=== PATIENT | female | born 1940 | race American Indian/Alaskan Native ===

== ENCOUNTER 2017-10-25 19:15 | Emergency (ER) | payer MEDICARE ==
--- NOTE | 2017-10-25 20:08 | C.PDOC ---
History Of Present Illness The patient is brought to the ED by family for evaluation of a possible fall which occurred prior to arrival. Patient's son states he heard a noise coming from the bathroom and found that patient had fallen inside the bath tub. Patient denies loss of consciousness. Patient's PMHx includes dementia and she is unable to provide any additional history. - HPI Time Seen by Provider: 10/25/17 20:03 Chief Complaint (Nursing): Trauma History Per: Patient, Family History/Exam Limitations: other (dementia ) Onset/Duration Of Symptoms: Hrs Injury Occurred (Timing): Just Before Arrival Location Of Injury: Left: Hip (abrasion) Severity: Mild Pain Scale Rating Of: 2 Recent travel outside of the [place]: No Additional History Per: Patient, Family Past Medical History Reviewed: Historical Data, Nursing Documentation, Vital Signs Vital Signs: Last Vital Signs Temp 97 F L 10/25/17 19:40 Pulse 82 10/25/17 22:53 Resp 18 10/25/17 22:53 BP 123/86 10/25/17 22:53 Pulse Ox 98 10/25/17 22:53 - Medical History PMH: Alzheimer's Disease, Dementia, HTN ("MANY YEARS AGO") Surgical History: No Surg Hx Family History: States: Unknown Family Hx - Social History Hx Tobacco Use: No Hx Alcohol Use: No Hx Substance Use: No - Immunization History Hx Tetanus Toxoid Vaccination: No Hx Influenza Vaccination: No Hx Pneumococcal Vaccination: No Review Of Systems Review Of Systems: ROS cannot be obtained secondary to pt's inabilty to answer questions. Physical Exam - Physical Exam Appears: Non-toxic, No Acute Distress Skin: Warm, Dry Head: Atraumatic, Normacephalic, No Other (crepitus ) Eye(s): bilateral: Other (arcus senilis) Ear(s): Bilateral: Normal Nose: No Deformity, No Tenderness, No Septal Hematoma Oral Mucosa: Moist Neck: No Midline Cervical Tenderness, No Paracervical Tenderness, Supple Chest: Symmetrical, No Deformity, No Tenderness Cardiovascular: Rhythm Regular, No Murmur Respiratory: No Rales, No Rhonchi, No Wheezing Gastrointestinal/Abdominal: Bowel Sounds (present ), Soft, No Tenderness, No Guarding, No Rebound Back: No CVA Tenderness Extremity: Normal ROM (bilateral upper and lower extremities ), Capillary Refill (less than 2 seconds ), Other (small, 1x1cm abrasion noted over left hip with mild tenderness. no crepitus ) Extremity: Bilateral: Normal Color And Temperature, Normal ROM Pulses: Left Dorsalis Pedis: Normal, Right Dorsalis Pedis: Normal Neurological/Psych: Other (awake, alert and oriented x2) Gait: Unable To Assess ED Course And Treatment O2 Sat by Pulse Oximetry: 97 Pulse Ox Interpretation: Normal Progress Note: CT Cervical Spine, CT Head, CT Orbits/Facials, CT Pelvis ordered. Patient given Tylenol PO. Reevaluation Time: 23:09 Reassessment Condition: Improved Disposition Counseled Patient/Family Regarding: Studies Performed, Diagnosis, Need For Followup - Disposition Referrals: [facility] [Outside] [facility] [Outside] Disposition: HOME/ ROUTINE Disposition Time: 20:08 Condition: FAIR Instructions: Minor Head Injury (DC), Contusion (DC), Hip Pain (DC) Forms: [employer] [facility] [employer] (Upper Sorbian) - Clinical Impression Clinical Impression: Fall, Minor head injury without loss of consciousness, Dementia, Abrasion, left hip, initial encounter - Scribe Statement The provider has reviewed the documentation as recorded by the Scribe (Monica Edouard) Provider Attestation: All medical record entries made by the Scribe were at my direction and personally dictated by me. I have reviewed the chart and agree that the record accurately reflects my personal performance of the history, physical exam, medical decision making, and the department course for this patient. I have also personally directed, reviewed, and agree with the discharge instructions and disposition.
[2017-10-25] MEDS ORDERED: Acetaminophen 650mg/20.3ml solution UD ONE (20:27)
--- NOTE | 2017-10-25 21:48 | CT ---
EXAM: CT Pelvis Without Intravenous Contrast CLINICAL HISTORY: 77 years old, female; Injury or trauma; Fall; Initial encounter; Abrasion; Bilateral; Pelvic region; Patient HX: Pt contracted/dementia TECHNIQUE: Axial computed tomography images of the pelvis without intravenous contrast. All CT scans at this facility use one or more dose reduction techniques, viz.: automated exposure control; ma/kV adjustment per patient size (including targeted exams where dose is matched to indication; i.e. head); or iterative reconstruction technique. Coronal and sagittal reformatted images were created and reviewed. COMPARISON: No relevant prior studies available. FINDINGS: Limitations: Lack of intravenous contrast. Streak artifact - mild. Bones/joints: No acute fracture. Degenerative changes of lower lumbar spine. No dislocation. Soft tissues: Moderate diffuse stranding throughout subcutaneous tissues. Vasculature: Atherosclerotic disease of visualized arteries. Stomach and bowel: Colonic diverticula. Reproductive: Lobulated uterus with multiple coarse calcifications compatible with fibroids. 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 IMPRESSION: 1. No fracture. 2. If pain persists, consider MRI to exclude occult fracture/internal derangement. 3. Incidental/non-acute findings are described above.
--- NOTE | 2017-10-25 21:51 | CT ---
EXAM: CT Orbits Without Intravenous Contrast CLINICAL HISTORY: 77 years old, female; Injury or trauma; Fall; Initial encounter; Abrasion; Forehead TECHNIQUE: Axial computed tomography images of the orbits without intravenous contrast. All CT scans at this facility use one or more dose reduction techniques, viz.: automated exposure control; ma/kV adjustment per patient size (including targeted exams where dose is matched to indication; i.e. head); or iterative reconstruction technique. Coronal and sagittal reformatted images were created and reviewed. COMPARISON: No relevant prior studies available. FINDINGS: Limitations: Suboptimal positioning. Streak artifact - mild. Orbits: Unremarkable as visualized. Sinuses: Scattered mild mucosal thickening. Few maxillary retention cysts. No air-fluid levels. Bones/joints: Degenerative changes of cervical spine. No acute fracture. Soft tissues: Mild facial soft tissue swelling. Vasculature: Mild atherosclerotic disease of intracranial arteries. Dental: Multiple periapical lucencies compatible with dental disease. IMPRESSION: 1. No fracture. 2. Incidental/non-acute findings are described above.
--- NOTE | 2017-10-25 22:26 | CT ---
EXAM: CT Cervical Spine Without Intravenous Contrast CLINICAL HISTORY: 77 years old, female; Injury or trauma; Fall; Initial encounter; Abrasion TECHNIQUE: Axial computed tomography images of the cervical spine without intravenous contrast. All CT scans at this facility use one or more dose reduction techniques, viz.: automated exposure control; ma/kV adjustment per patient size (including targeted exams where dose is matched to indication; i.e. head); or iterative reconstruction technique. Coronal and sagittal reformatted images were created and reviewed. COMPARISON: No relevant prior studies available. FINDINGS: Limitations: Suboptimal positioning. Vertebrae: No acute fracture. Straightening of cervical spine. Degenerative anterolisthesis of mid cervical spine. Facet osteoarthrosis. Discs/spinal canal/neural foramina: No significant central canal stenosis. Neuroforaminal narrowing with mid cervical spine. Soft tissues: Unremarkable. Vasculature: Mild atherosclerotic disease. Sinuses: Scattered minimal to mild mucosal thickening. Few maxillary retention cysts. Dental: Multiple periapical lucencies compatible with dental disease. Lung apices: Mild peripheral scarring/bullous changes. IMPRESSION: 1. No fracture. 2. Incidental/non-acute findings are described above.
--- NOTE | 2017-10-25 22:52 | CT ---
EXAM: CT Head Without Intravenous Contrast CLINICAL HISTORY: 77 years old, female; Injury or trauma; Fall; Work related; Initial encounter; Abrasion; Not specified TECHNIQUE: Axial computed tomography images of the head/brain without intravenous contrast. All CT scans at this facility use one or more dose reduction techniques, viz.: automated exposure control; ma/kV adjustment per patient size (including targeted exams where dose is matched to indication; i.e. head); or iterative reconstruction technique. COMPARISON: CT - HEAD W/O CONTRAST 2014-12-22 01:49 FINDINGS: Limitations: Suboptimal positioning. Streak artifact - mild. Brain: [id number] atrophy. No definite intracranial hemorrhage. No mass. Several scattered foci of decreased attenuation within periventricular/subcortical white matter. No definite edema. Ventricles: No hydrocephalus. Bones/joints: No acute fracture. Soft tissues: Unremarkable. Vasculature: Mild atherosclerotic disease of intracranial arteries. Sinuses: Scattered mild mucosal thickening. Few maxillary retention cysts. Mastoid air cells: No mastoid effusion. Orbits: Unremarkable as visualized. IMPRESSION: 1. No definite intracranial hemorrhage. 2. Nonspecific white matter changes. 3. Incidental/non-acute findings are described above.
[2017-10-25 22:54] VITALS: BP 123/86; PULSE 82; RESP 18
[2017-10-25 23:12] VITALS: O2SAT 97
[2017-10-25 23:29] VITALS: TEMP 98.2
== END 2017-10-25 23:31 | disposition home or self-care (01) ==
LOC: C.ER 19:15
DX: S70.212A Abrasion, left hip, initial encounter (principal); S09.90XA Unspecified injury of head, initial encounter; W18.2XXA Fall in (into) shower or empty bathtub, initial encounter; Y92.002 Bathroom of unspecified non-institutional (private) residence as the place of occurrence of the external cause; F03.90 Unspecified dementia, unspecified severity, without behavioral disturbance, psychotic disturbance, mood disturbance, and anxiety

== ENCOUNTER 2017-12-11 12:27 | Emergency (ER) | payer MEDICARE ==
[2017-12-11] MEDS ORDERED: Sodium Chloride 0.9% 500 ML IV ONE (13:01)
[2017-12-11 13:41] LABS: BASO % 0.4 % (0.0-2.0); EOS % 0.6 % (0.0-4.0); HEMOGLOBIN 12.3 g/dL (11.0-16.0); LYMPH # 1.5 K/uL (1.0-4.3); LYMPH % 54.7 % (20.0-40.0); MEAN CELL VOLUME 93.8 fL (81.0-99.0); MEAN CORPUSCULAR HEMOGLOBIN 31.3 pg (27.0-31.0); MEAN CORPUSCULAR HGB CONC 33.4 g/dL (33.0-37.0); MEAN PLATELET VOLUME 9.4 fL (7.2-11.7); MONO # 0.2 K/uL (0.0-0.8); MONO % 7.5 % (0.0-10.0); NEUT % 36.8 % (50.0-75.0); NRBC % 0.3 % (0.0-2.0); RBC 3.94 Mil/uL (3.80-5.20); RED CELL DISTRIBUTION WIDTH 14.4 % (11.5-14.5); WHITE BLOOD COUNT 2.7 K/uL (4.8-10.8)
[2017-12-11 13:48] LABS: INR 1.2; PROTHROMBIN TIME 12.6 SECONDS (9.7-12.2)
[2017-12-11 13:49] LABS: ALB/GLOB RATIO 0.7 (1.0-2.1); ALBUMIN 3.1 g/dL (3.5-5.0); ALT/SGPT 21 U/L (9-52); AST/SGOT 24 U/L (14-36); BLOOD UREA NITROGEN 22 mg/dL (7-17); CALCIUM 9.1 mg/dl (8.6-10.4); GFR AFRICAN-AMERICAN > 60; GFR NON-AFRICAN AMERICAN > 60
--- NOTE | 2017-12-11 14:00 | CT ---
PROCEDURE: CT HEAD WITHOUT CONTRAST. HISTORY: head injury COMPARISON: None available. TECHNIQUE: Axial computed tomography images were obtained through the head/brain without intravenous contrast. Radiation dose: Total exam DLP = 1873.87 mGy-cm. This CT exam was performed using one or more of the following dose reduction techniques: Automated exposure control, adjustment of the mA and/or kV according to patient size, and/or use of iterative reconstruction technique. FINDINGS: HEMORRHAGE: No intracranial hemorrhage. BRAIN: No intracranial mass. Mild diffuse atrophy. Moderate periventricular white matter lucency with patchy and confluent areas of deep and subcortical lucency, consistent with chronic microvascular ischemic change. No evidence of acute vascular territorial infarct. Small old bilateral basal ganglia lacunar infarcts are noted. There is a large dilated perivascular space inferior to the right lentiform nucleus. . VENTRICLES: Mild ventricular dilatation is seen proportionate to the degree of surrounding parenchymal atrophy. CALVARIUM: Unremarkable. PARANASAL SINUSES: Small retention cysts/ polyps in the right maxillary antrum. Mild chronic bilateral maxillary sinusitis. MASTOID AIR CELLS: Unremarkable as visualized. No inflammatory changes. OTHER FINDINGS: None. IMPRESSION: No evidence of acute intracranial hemorrhage. Chronic white matter ischemic change and mild age-appropriate atrophy. Old small basal ganglia lacunar infarcts.
--- NOTE | 2017-12-11 14:25 | C.PDOC ---
History Of Present Illness 77-year-old female, is brought to the emergency department by nephew, who states patient was in the bath tub, and he was helping her bathe, when she slipped and fell, hitting her head on the tub. Nephew reports patient dozed off , and then developed some difficulty walking. States she does not usually admit to any complaints. No vomiting, facial droop or change in speech. Time Seen by Provider: 12/11/17 12:34 Chief Complaint (Nursing): Abnormal Skin Integrity History Per: Family History/Exam Limitations: clinical condition Current Symptoms Are (Timing): Still Present Past Medical History Reviewed: Historical Data, Nursing Documentation, Vital Signs Vital Signs: Last Vital Signs Temp 98.2 F 12/11/17 16:09 Pulse 76 12/11/17 15:54 Resp 16 12/11/17 15:54 BP 169/100 H 12/11/17 15:54 Pulse Ox 100 12/11/17 16:32 - Medical History PMH: Alzheimer's Disease, Dementia, HTN ("MANY YEARS AGO") Family History: States: No Known Family Hx - Social History Hx Tobacco Use: No Hx Alcohol Use: No Hx Substance Use: No - Immunization History Hx Tetanus Toxoid Vaccination: No Hx Influenza Vaccination: No Hx Pneumococcal Vaccination: No Review Of Systems Review Of Systems: ROS cannot be obtained secondary to pt's inabilty to answer questions. Physical Exam - Physical Exam Appears: Non-toxic, No Acute Distress, Other Skin: Normal Color, Warm, Dry, No Rash Head: Laceration (3 cm laceration to forehead.) Eye(s): bilateral: Normal Inspection, PERRL, EOMI, Other (No raccoon eyes) Nose: Normal Oral Mucosa: Moist Lips: Normal Appearing Neck: Normal ROM Chest: Symmetrical Cardiovascular: Rhythm Regular, No Murmur Respiratory: Normal Breath Sounds, No Accessory Muscle Use Extremity: Normal ROM, No Deformity, No Swelling Extremity: Left: Normal ROM Neurological/Psych: Other (Pleasantly confused at baseline) ED Course And Treatment - Laboratory Results Result Diagrams: 12/11/17 13:27 12/11/17 13:27 O2 Sat by Pulse Oximetry: 100 - CT Scan/US ct head Other Rad Studies (CT/US): Read By Radiologist, Radiology Report Reviewed CT/US Interpretation: Accession No. : [id number]. Patient Name / ID : REAL GRANT / [id number]. Exam Date : 12/11/2017 13:39:13 ( Approved ). Study Comment : Sex / Age : F / 77Y. Creator : Ulises Farr MD. Dictator : Ulises Farr MD. Floor Technician : Sonoscope Operator : Ulises Farr MD. Approver2 : Report Date : 12/11/2017 13:59:00. My Comment : . PROCEDURE: CT HEAD WITHOUT CONTRAST. HISTORY: head injury. COMPARISON: None available. TECHNIQUE: Axial computed tomography images were obtained through the head/brain without intravenous contrast. Radiation dose: Total exam DLP = 1873.87 mGy-cm. This CT exam was performed using one or more of the following dose reduction techniques: Automated exposure control, adjustment of the mA and/or kV according to patient size, and/or use of iterative reconstruction technique. FINDINGS: HEMORRHAGE: No intracranial hemorrhage. BRAIN: No intracranial mass. Mild diffuse atrophy. Moderate periventricular white matter lucency with patchy and confluent areas of deep and subcortical lucency, consistent with chronic microvascular ischemic change. No evidence of acute vascular territorial infarct. Small old bilateral basal ganglia lacunar infarcts are noted. There is a large dilated perivascular space inferior to the right lentiform nucleus. . VENTRICLES: Mild ventricular dilatation is seen proportionate to the degree of surrounding parenchymal atrophy. CALVARIUM : Unremarkable. PARANASAL SINUSES: Small retention cysts/ polyps in the right maxillary antrum. Mild chronic bilateral maxillary sinusitis. MASTOID AIR CELLS: Unremarkable as visualized. No inflammatory changes. OTHER FINDINGS : None. IMPRESSION: No evidence of acute intracranial hemorrhage. Chronic white matter ischemic change and mild age-appropriate atrophy. Old small basal ganglia lacunar infarcts. Progress Note: CT Head, bloodwork and UA ordered and reviewed Laceration - Laceration Repair Right eyebrow Wound Length (In cm): 3cm Description Of Wound: Linear Wound Cleansed With: Betadine Anesthesia: Lidocaine 1% (local infiltration) Wound Examination: No FB With Wound Exploration, No Tendon Injury With Wound Exploration Wound Closure: Steri Strips, Skin Glue (dermal), Suture (2 subcutaneous) Suture Technique And Material Used: Vicryl (5-O) Disposition Counseled Patient/Family Regarding: Studies Performed, Diagnosis, Need For Followup, Rx Given - Disposition Referrals: [facility] [Outside] Disposition: HOME/ ROUTINE Disposition Time: 16:30 Condition: STABLE Additional Instructions: FOLLOW UP WITH YOUR DOCTOR/CLINIC IN 1-2 DAYS USE MEDICATION NEEDED FOR PAIN RETURN TO ER IF YOU HAVE ANY CONCERNING SYMPTOMS Prescriptions: Acetaminophen [Tylenol 325mg tab] 650 mg PO Q6 PRN #30 tab PRN Reason: pain/fever Instructions: Laceration Repair With Glue (DC), Closed Head Injury (DC), Laceration Repair With Stitches (DC) Forms: [employer] (Croatian) Print Language: KINYARWANDA - POA Present On Arrival: Falls Or Trauma - Clinical Impression Clinical Impression: Closed head injury, Laceration of forehead - Scribe Statement The provider has reviewed the documentation as recorded by the Scribe (Franco Acuña) All medical record entries made by the Scribe were at my direction and personally dictated by me. I have reviewed the chart and agree that the record accurately reflects my personal performance of the history, physical exam, medical decision making, and the department course for this patient. I have also personally directed, reviewed, and agree with the discharge instructions and disposition.
[2017-12-11] MEDS ORDERED: Lidocaine 1% Inj (20ml) INFIL STA (15:05)
[2017-12-11] MEDS ORDERED: Lidocaine Hydrochloride 5 ML INJ ONE (15:09)
[2017-12-11 15:57] VITALS: BP 169/100; PULSE 76; RESP 16
[2017-12-11 15:58] LABS: SQUAMOUS EPITHIAL < 1 /hpf (0-5); URINE BILIRUBIN NEGATIVE (NEGATIVE); URINE BLOOD NEGATIVE (NEGATIVE); URINE CLARITY Clear (Clear); URINE COLOR Yellow (YELLOW); URINE GLUCOSE (UA) NORMAL (Normal); URINE LEUKOCYTE ESTERASE NEG Leu/uL (Negative); URINE PROTEIN NEGATIVE (NEGATIVE)
[2017-12-11 16:09] VITALS: TEMP 98.2
[2017-12-11 16:32] VITALS: O2SAT 100
== END 2017-12-11 18:22 | disposition home or self-care (01) ==
LOC: C.ER 12:27
DX: S01.81XA Laceration without foreign body of other part of head, initial encounter (principal); W18.2XXA Fall in (into) shower or empty bathtub, initial encounter
CPT/HCPCS: 12013; 70450; 80053; 81001; 82948; 85025; 85610; 85730; 99283; J7040

== ENCOUNTER 2018-03-29 16:28 | Inpatient (IN) | payer MEDICARE ==
[2018-03-29 17:13] LABS: HEMOGLOBIN 12.6 g/dL (11.0-16.0); MEAN CELL VOLUME 91.6 fL (81.0-99.0); MEAN CORPUSCULAR HEMOGLOBIN 30.5 pg (27.0-31.0); MEAN CORPUSCULAR HGB CONC 33.3 g/dL (33.0-37.0); MEAN PLATELET VOLUME 9.8 fL (7.2-11.7); RBC 4.12 Mil/uL (3.80-5.20); RED CELL DISTRIBUTION WIDTH 13.7 % (11.5-14.5); WHITE BLOOD COUNT 5.4 K/uL (4.8-10.8)
[2018-03-29 17:30] LABS: ALB/GLOB RATIO 0.9 (1.0-2.1); ALBUMIN 3.7 g/dL (3.5-5.0); ALT/SGPT 18 U/L (9-52); AST/SGOT 29 U/L (14-36); BLOOD UREA NITROGEN 12 mg/dL (7-17); CALCIUM 9.1 mg/dl (8.6-10.4); GFR NON-AFRICAN AMERICAN > 60
--- NOTE | 2018-03-29 17:38 | C.PDOC ---
History Of Present Illness 77 y/o F c PMHx Alzheimer's dementia BIBEMS. Nephew (who is not with patient in ED) stated to EMS that patient lives with him, has not been eating for 3 days and has general weakness and also noted a wound to the L hip. Patient has no complaints. Full HPI/ROS unobtainable due to patient's dementia. Time Seen by Provider: 03/29/18 16:37 Chief Complaint (Nursing): Altered Mental Status Past Medical History Vital Signs: Last Vital Signs Temp 97.1 F L 03/29/18 16:51 Pulse 65 03/29/18 20:12 Resp 16 03/29/18 20:12 BP 168/85 H 03/29/18 20:12 Pulse Ox 98 03/29/18 20:12 - Medical History PMH: Alzheimer's Disease, Dementia, HTN ("MANY YEARS AGO") Family History: States: Unknown Family Hx - Social History Hx Tobacco Use: No Hx Alcohol Use: No Hx Substance Use: No - Immunization History Hx Tetanus Toxoid Vaccination: No Hx Influenza Vaccination: No Hx Pneumococcal Vaccination: No Review Of Systems Review Of Systems: ROS cannot be obtained secondary to pt's inabilty to answer questions. Physical Exam - Physical Exam Additional Physical Exam Comments: Gen: NAD Head: NC/AT Eyes: PERRL ENT: MMM Neck: Supple, no midline tenderness Chest: No tenderness CV: Regular rate Lungs: CTA b/l Abd: Soft, NT Back: No sacral ulcer Extremities: No edema or tenderness Skin: L hip pressure ulcer, very superficial Neuro: Alert, oriented x 1 ED Course And Treatment - Laboratory Results Result Diagrams: 03/29/18 17:10 03/29/18 17:10 Medical Decision Making Medical Decision Making: EKG Sinus rhythm, 66 bpm, no ST elevations. PACs. CXR IMPRESSION: Stable biapical in peripheral fibrotic changes. No focal consolidation or pleural effusion. Disposition - Disposition Disposition: HOSPITALIZED Disposition Time: 18:44 Condition: FAIR Instructions: Weakness (ED) Forms: [facility] (Surinamese) - Clinical Impression Clinical Impression: UTI (urinary tract infection), Hypokalemia, Generalized weakness
--- NOTE | 2018-03-29 18:07 | RAD ---
Date of service: 03/29/2018 HISTORY: weakness COMPARISON: Chest radiograph dated 05/13/2015. FINDINGS: LUNGS: Biapical and peripheral fibrotic changes. No focal consolidation. PLEURA: No significant pleural effusion identified, no pneumothorax apparent. CARDIOVASCULAR: Atherosclerotic aortic calcifications. Cardiomediastinal silhouette stably enlarged. OSSEOUS STRUCTURES: Unchanged. VISUALIZED UPPER ABDOMEN: Normal. OTHER FINDINGS: None. IMPRESSION: Stable biapical in peripheral fibrotic changes. No focal consolidation or pleural effusion.
[2018-03-29 18:27] LABS: SQUAMOUS EPITHIAL < 1 /hpf (0-5); URINE BACTERIA MANY (<OCC); URINE BILIRUBIN NEGATIVE (NEGATIVE); URINE BLOOD 1+ (NEGATIVE); URINE CLARITY Hazy (Clear); URINE GLUCOSE (UA) NORMAL (Normal); URINE LEUKOCYTE ESTERASE 3+ Leu/uL (Negative); URINE PROTEIN NEGATIVE (NEGATIVE)
[2018-03-29 18:33] LABS: URINE COLOR YELLOW (YELLOW)
[2018-03-29] MEDS ORDERED: cefTRIAXone IV 1 gm in Dextros 50 ML IVPB ONE (21:03)
[2018-03-29] MEDS ORDERED: cefTRIAXone 1 gm 1 GM/100 ML BAG IVPB ONE (21:15)
[2018-03-29] MEDS ORDERED: Potassium Chloride 20 mEq 100 ML ONE (21:15)
[2018-03-29 23:50] VITALS: RESP 20
[2018-03-30] MEDS: Enoxaparin 40 mg Syringe SC SCH (10:46)
[2018-03-30 12:06] LABS: BLOOD UREA NITROGEN 12 mg/dL (7-17); GFR NON-AFRICAN AMERICAN > 60
--- NOTE | 2018-03-30 14:19 | CP.PCM.HP ---
History of Present Illness - History of Present Illness History of Present Illness: patient was brought to the emergency room by the patient's grandson periods of confusion and disorientation patient was evaluated in the emergency room patient had a low potassium and urine infection currently no further information is available there is no previous admissions of this hospital and his grandson is not available for further inquiry. Present on Admission - Present on Admission Any Indicators Present on Admission: No Review of Systems - Review of Systems Review of Systems: patient is confused and disoriented cannot evaluate review of systems Past Patient History - Past Social History Smoking Status: Never Smoked - CARDIAC Hx Hypertension: Yes ("MANY YEARS AGO") - NEUROLOGICAL Hx Alzheimer's Disease: Yes Hx Dementia: Yes - MUSCULOSKELETAL/RHEUMATOLOGICAL Hx Falls: Yes - PSYCHIATRIC Hx Substance Use: No - SURGICAL HISTORY Hx Surgeries: No Meds Allergies/Adverse Reactions: Allergies Allergy/AdvReac Type Severity Reaction Status Date / Time No Known Allergies Allergy Verified 12/11/17 12:35 Physical Exam - Head Exam Head Exam: ATRAUMATIC - Eye Exam Eye Exam: EOMI, Normal appearance - ENT Exam ENT Exam: Mucous Membranes Dry - Neck Exam Neck exam: Positive for: Full Rom. Negative for: Lymphadenopathy, Thyromegaly - Respiratory Exam Respiratory Exam: NORMAL BREATHING PATTERN - Cardiovascular Exam Cardiovascular Exam: +S1, +S2, +S4 - GI/Abdominal Exam GI & Abdominal Exam: Soft. absent: Tenderness - Extremities Exam Extremities exam: Positive for: full ROM. Negative for: calf tenderness, pedal edema - Back Exam Back exam: absent: CVA tenderness (L), CVA tenderness (R) - Neurological Exam Neurological exam: Alert, Altered, CN II-XII Intact - Skin Skin Exam: Abrasion (left hip superficial of), Warm Results - Vital Signs Recent Vital Signs: Last Vital Signs Temp 97.6 F 03/30/18 08:00 Pulse 72 03/30/18 08:00 Resp 20 03/30/18 08:00 BP 158/76 H 03/30/18 08:00 Pulse Ox 100 03/30/18 08:00 - Labs Result Diagrams: 03/29/18 17:10 03/30/18 11:40 Labs: Laboratory Results - last 24 hr 03/29/18 03/29/18 03/29/18 17:10 17:10 17:49 WBC 5.4 D RBC 4.12 Hgb 12.6 Hct 37.8 MCV 91.6 D MCH 30.5 MCHC 33.3 RDW 13.7 Plt Count 162 MPV 9.8 Sodium 139 Potassium 3.0 L Chloride 93 L Carbon Dioxide 34 H Anion Gap 15 BUN 12 Creatinine 0.6 L Est GFR ( Amer) > 60 Est GFR (Non-Af Amer) > 60 Random Glucose 216 H Calcium 9.1 Total Bilirubin 0.7 AST 29 ALT 18 Alkaline Phosphatase 101 Total Protein 7.8 Albumin 3.7 Globulin 4.1 H Albumin/Globulin Ratio 0.9 L Urine Color Yellow Urine Clarity Hazy Urine pH 7.0 Ur Specific [place] 1.012 Urine Protein Negative Urine Glucose (UA) Normal Urine Ketones Trace Urine Blood 1+ H Urine Nitrate Negative Urine Bilirubin Negative Urine Urobilinogen 2.0 H Ur Leukocyte Esterase 3+ H Urine WBC (Auto) 38 H Urine RBC (Auto) 2 Ur Squamous Epith Cells < 1 Urine Bacteria Many H 03/30/18 11:40 WBC RBC Hgb Hct MCV MCH MCHC RDW Plt Count MPV Sodium 140 Potassium 2.7 L Chloride 95 L Carbon Dioxide 35 H Anion Gap 12 BUN 12 Creatinine 0.5 L Est GFR ( Amer) > 60 Est GFR (Non-Af Amer) > 60 Random Glucose 96 Calcium 8.0 L Total Bilirubin AST ALT Alkaline Phosphatase Total Protein Albumin Globulin Albumin/Globulin Ratio Urine Color Urine Clarity Urine pH Ur Specific [place] Urine Protein Urine Glucose (UA) Urine Ketones Urine Blood Urine Nitrate Urine Bilirubin Urine Urobilinogen Ur Leukocyte Esterase Urine WBC (Auto) Urine RBC (Auto) Ur Squamous Epith Cells Urine Bacteria Assessment & Plan (1) Generalized weakness Status: Acute (2) Hypokalemia Status: Acute (3) UTI (urinary tract infection) Status: Acute (4) Abrasion, left hip, initial encounter Status: Acute (5) Dementia Status: Acute
[2018-03-30] MEDS ORDERED: Potassium Chloride 20 mEq ER Tab PO ONE (18:00)
[2018-03-31 09:11] LABS: BASO % 0.3 % (0.0-2.0); EOS % 0.7 % (0.0-4.0); HEMOGLOBIN 10.7 g/dL (11.0-16.0); LYMPH % 57.7 % (20.0-40.0); MEAN CORPUSCULAR HEMOGLOBIN 30.7 pg (27.0-31.0); MEAN CORPUSCULAR HGB CONC 33.4 g/dL (33.0-37.0); MEAN PLATELET VOLUME 10.2 fL (7.2-11.7); MONO # 0.3 K/uL (0.0-0.8); MONO % 8.6 % (0.0-10.0); NEUT # 1.1 K/uL (1.8-7.0); NEUT % 32.7 % (50.0-75.0); NRBC % 0.1 % (0.0-2.0); RBC 3.49 Mil/uL (3.80-5.20); WHITE BLOOD COUNT 3.4 K/uL (4.8-10.8)
[2018-03-31 09:24] LABS: ALB/GLOB RATIO 0.9 (1.0-2.1); ALBUMIN 2.9 g/dL (3.5-5.0); ALT/SGPT 17 U/L (9-52); AST/SGOT 15 U/L (14-36); BLOOD UREA NITROGEN 15 mg/dL (7-17); GFR NON-AFRICAN AMERICAN > 60
[2018-03-31] MEDS: Enoxaparin 40 mg Syringe SC SCH (10:05)
--- NOTE | 2018-03-31 15:16 | CP.PCM.PN ---
Subjective - Date & Time of Evaluation Date of Evaluation: 03/31/18 Time of Evaluation: 15:15 - Subjective Subjective: patient remains confused and disoriented but remembers her name. Vital signs are stable afebrile Physical examination is unchanged. Urine shows E. coli sensitive to current antibiotics. Continue IV antibiotic. Objective - Vital Signs/Intake and Output Vital Signs (last 24 hours): Temp Pulse Resp BP Pulse Ox 97.8 F 76 20 180/93 H 99 03/31/18 07:37 03/31/18 07:37 03/31/18 07:37 03/31/18 07:37 03/31/18 07:37 Intake and Output: 03/31/18 03/31/18 11:59 23:59 Intake Total 300 500 Balance 300 500 - Medications Medications: Current Medications Enoxaparin Sodium (Lovenox) 40 mg SC DAILY [facility] Last Admin: 03/31/18 10:05 Dose: 40 mg Ceftriaxone Sodium 1 gm/ (Sodium Chloride) 100 mls @ 100 mls/hr IVPB Q24H [facility] PRN Reason: Protocol Last Admin: 03/30/18 22:56 Dose: 100 mls/hr Pneumococcal Polyvalent Vaccine (Pneumovax 23 Vaccine) 0.5 ml IM .ONCE ONE Stop: 04/01/18 10:01 - Labs Labs: 03/31/18 08:56 03/31/18 08:56 Assessment and Plan (1) Generalized weakness Status: Acute (2) Hypokalemia Status: Acute (3) UTI (urinary tract infection) Status: Acute (4) Abrasion, left hip, initial encounter Status: Acute (5) Dementia Status: Acute
[2018-04-01] MEDS ORDERED: Pneumococcal 23-Valent Vaccine IM ONE (10:00)
[2018-04-01] MEDS: Enoxaparin 40 mg Syringe SC SCH (10:29)
--- NOTE | 2018-04-01 14:35 | CP.PCM.PN ---
Subjective - Date & Time of Evaluation Date of Evaluation: 04/01/18 Time of Evaluation: 14:34 - Subjective Subjective: REMAINS CONFUSED AND DISORIENTED ROS NOT POSSIBLE AFEBRILE BLOOD CULTURES POS ID EVAL Objective - Vital Signs/Intake and Output Vital Signs (last 24 hours): Temp Pulse Resp BP Pulse Ox 97.8 F 73 20 140/83 100 04/01/18 07:34 04/01/18 08:20 04/01/18 07:34 04/01/18 08:20 04/01/18 07:34 Intake and Output: 04/01/18 04/01/18 11:59 23:59 Intake Total 200 Balance 200 - Medications Medications: Current Medications Enoxaparin Sodium (Lovenox) 40 mg SC DAILY TIM Last Admin: 04/01/18 10:29 Dose: 40 mg Ceftriaxone Sodium 1 gm/ (Sodium Chloride) 100 mls @ 100 mls/hr IVPB Q24H TIM PRN Reason: Protocol Last Admin: 03/31/18 21:19 Dose: 100 mls/hr - Labs Labs: 03/31/18 08:56 03/31/18 08:56 Assessment and Plan (1) Generalized weakness Status: Acute (2) Hypokalemia Status: Acute (3) UTI (urinary tract infection) Status: Acute (4) Abrasion, left hip, initial encounter Status: Acute (5) Dementia Status: Acute
--- NOTE | 2018-04-01 16:31 | CP.PCM.CON ---
History of Present Illness - History of Present Illness History of Present Illness: INFECTIOUS DISEASE CONSULTATION; REASON FOR CONSULT; GRAM-POSITIVE COCCI IN BLOOD CULTURE, UTI. HPI; 77-year-old female with history off Alzheimer's dementia who is admitted because off generalized weakness, hypokalemia and not eating for 3 days prior to admission. Patient was brought in by EMS. As per staff and PMD patient was appropriately cultured and started on Rocephin 1 g every 24 hourly. Urine cultures came back positive for Escherichia coli. Today it was reported that blood cultures on 03/30/18 came back positive for gram- positive cocci identified as SPHINGOMONAS PAUCIMOBILIS . PATIENT ALSO NOTED TO BE PANCYTOPENIC WITH wbc COUNT OF 3.4, HEMOGLOBIN 10.7, PLATELETS 145. Infectious disease consult therefore requested by PMD for bacteremia and generalized weakness. NO FURTHER HISTORY PRESENTLY AVAILABLE PATIENT IS CONFUSED AND HAS DEMENTIA. PMH: Alzheimer's Disease, Dementia, HTN ("MANY YEARS AGO") Family History: States: Unknown Family Hx - Social History Hx Tobacco Use: No Hx Alcohol Use: No Hx Substance Use: No - Immunization History Hx Tetanus Toxoid Vaccination: No Hx Influenza Vaccination: No Hx Pneumococcal Vaccination: No. ALLERGY; NKA. Review of Systems - Review of Systems Systems not reviewed;Unavailable: Altered Mental Status Past Patient History - Past Social History Smoking Status: Never Smoked - CARDIAC Hx Hypertension: Yes - NEUROLOGICAL Hx Alzheimer's Disease: Yes Hx Dementia: Yes - MUSCULOSKELETAL/RHEUMATOLOGICAL Hx Falls: Yes - PSYCHIATRIC Hx Substance Use: No - SURGICAL HISTORY Hx Surgeries: No Meds Allergies/Adverse Reactions: Allergies Allergy/AdvReac Type Severity Reaction Status Date / Time No Known Allergies Allergy Verified 12/11/17 12:35 - Medications Medications: Current Medications Enoxaparin Sodium (Lovenox) 40 mg SC DAILY TIM Last Admin: 04/01/18 10:29 Dose: 40 mg Physical Exam - Constitutional Appears: No Acute Distress, Confused, Cachectic - Head Exam Head Exam: NORMAL INSPECTION - Eye Exam Eye Exam: PERRL - ENT Exam ENT Exam: Normal Oropharynx - Neck Exam Neck exam: Positive for: Normal Inspection - Respiratory Exam Respiratory Exam: Clear to Auscultation Bilateral - Cardiovascular Exam Cardiovascular Exam: REGULAR RHYTHM, +S1, +S2 - GI/Abdominal Exam GI & Abdominal Exam: Normal Bowel Sounds, Soft. absent: Mass, Organomegaly, Tenderness - Extremities Exam Extremities exam: Positive for: pedal pulses present. Negative for: calf tenderness, pedal edema - Neurological Exam Neurological exam: Altered - Psychiatric Exam Psychiatric exam: Flat Affect - Skin Skin Exam: Pallor, Warm Results - Vital Signs Recent Vital Signs: Last Vital Signs Temp 98.1 F 04/01/18 16:00 Pulse 75 04/01/18 16:00 Resp 20 04/01/18 16:00 BP 138/85 04/01/18 16:00 Pulse Ox 98 04/01/18 16:00 - Labs Result Diagrams: 04/02/18 07:04 04/02/18 07:04 - Imaging and Cardiology Chest x-ray Status: Report reviewed by me (BIAPICAL FIBROTIC CHANGES. nO PLEURAL EFFUSIONS. ) Assessment & Plan (1) Gram-positive bacteremia Assessment and Plan: BLOOD CULTURE +VE GRAM +VE COCCI- IDENTIFICATION - P BLOOD CULTURE +VE 1 SET SPHINGOMANAS PAUCIMOBILUS. DC IV ROCEPHIN . REPEAT BLOOD CULTURES 2 SETS 15 MINUTES APART REPEAT U/A ,URINE CULTURE TODAY START IV CIPRO 400MG iv PIGGYBAG EVERY 12 HOURLY. 04/01/18. FOLLOW-UP CULTURES TO ADJUST ANTIBIOTICS. Status: Acute (2) Hypokalemia Assessment and Plan: K- 3.9 TODAY IMPROVED. Status: Acute (3) UTI (urinary tract infection) Assessment and Plan: URINE CULTURE POSITIVE FOR E. COLI S- cIPRO/rOCEPHIN. PATIENT ON IV ANTIBIOTICS. CT OF THE ABDOMEN AND PELVIS WITH iv CONTRAST R/O RETROPERITONEAL LYMPHADENOPATHY, R/O HYDRONEPHROSIS/KIDNEY CYSTS OR ABSCESS. Status: Acute (4) Pancytopenia Assessment and Plan: CHECK LDH. CT OF THE ABDOMEN AND PELVIS WITH iv CONTRAST ORDERED. Status: Acute (5) Dementia Status: Acute
[2018-04-01] MEDS: Ciprofloxacin 400mg/200ml D5W 400 MG/200 ML BAG IVPB SCH (17:48)
[2018-04-02] MEDS: Ciprofloxacin 400mg/200ml D5W 400 MG/200 ML BAG IVPB SCH ×2 (04:00→18:00)
[2018-04-02 07:26] LABS: BASO % 0.2 % (0.0-2.0); EOS % 0.6 % (0.0-4.0); HEMOGLOBIN 10.9 g/dL (11.0-16.0); LYMPH # 2.7 K/uL (1.0-4.3); LYMPH % 64.4 % (20.0-40.0); MEAN CELL VOLUME 90.6 fL (81.0-99.0); MEAN CORPUSCULAR HEMOGLOBIN 30.9 pg (27.0-31.0); MEAN CORPUSCULAR HGB CONC 34.1 g/dL (33.0-37.0); MEAN PLATELET VOLUME 9.8 fL (7.2-11.7); MONO # 0.4 K/uL (0.0-0.8); MONO % 8.4 % (0.0-10.0); NEUT # 1.1 K/uL (1.8-7.0); NEUT % 26.4 % (50.0-75.0); NRBC % 0.2 % (0.0-2.0); RBC 3.52 Mil/uL (3.80-5.20); RED CELL DISTRIBUTION WIDTH 13.9 % (11.5-14.5); WHITE BLOOD COUNT 4.2 K/uL (4.8-10.8)
[2018-04-02 09:19] LABS: ALB/GLOB RATIO 0.8 (1.0-2.1); ALT/SGPT 14 U/L (9-52); AST/SGOT 26 U/L (14-36); BILIRUBIN,DIRECT 0.3 mg/dL (0.0-0.4); BLOOD UREA NITROGEN 19 mg/dL (7-17); CALCIUM 9.3 mg/dl (8.6-10.4); GFR NON-AFRICAN AMERICAN > 60
[2018-04-02] MEDS ORDERED: Iodixanol 320 MG/ML 100 ML BOTTLE IV ONE (09:24)
[2018-04-02] MEDS: Enoxaparin 40 mg Syringe SC SCH (10:52)
--- NOTE | 2018-04-02 11:44 | CT ---
Date of service: 04/02/2018 PROCEDURE: CT Abdomen and Pelvis with contrast HISTORY: bacteremia/uti COMPARISON: None. TECHNIQUE: Following the intravenous administration of iodinated contrast material, a CT examination of the abdomen and pelvis performed from the domes of the diaphragms to the symphysis pubis with reformatted datasets provided in axial, sagittal and coronal planes. Oral contrast was not administered as per referring physician request. Contrast dose: Visipaque 320, 75 cc Radiation dose: Total exam DLP = 222.31 mGy-cm. This CT exam was performed using one or more of the following dose reduction techniques: Automated exposure control, adjustment of the mA and/or kV according to patient size, and/or use of iterative reconstruction technique. FINDINGS: LOWER THORAX: Elevated right hemidiaphragm noted as well as limited pulmonary fibrotic changes in the periphery. No alveolitis pleural pericardial effusion. Cardiomegaly is noted. LIVER: No hepatic lesion is identified however mild intrahepatic biliary dilatation is questioned. GALLBLADDER AND BILE DUCTS: Gallbladder is contracted. No radiodense cholelithiasis appreciable. PANCREAS: No definite pancreatic mass identified however the pancreatic duct appears mildly dilated at 3 mm caliber. SPLEEN: Unremarkable. ADRENALS: Unremarkable. No mass. KIDNEYS AND URETERS: Unremarkable right kidney. A large cyst is partially exophytic related to the mid to lower pole left kidney measuring 5.2 x 4.7 cm, simple in appearance. No solid renal mass identified bilaterally or hydro nephrosis. VASCULATURE: Mild aortic iliac atherosclerosis appreciated appears to moderate of although bilateral renal arteries. Inferior vena cava appears patent. BOWEL: Stomach is distended with retained food and fluid as well as a bit of air. Prominent retained material seen throughout the large bowel suggesting at least an element of constipation comfortably in the right hemicolon. Small bowel is poorly evaluated due lack oral contrast in particular and cachectic body habitus. Sigmoid diverticulosis is suspected. Diverticulitis not grossly evident but is limited evaluation due to cachexia and probable anasarca. APPENDIX: Not identified. No definitive pattern appendicitis. The appendix may be retrocecal but is difficult to confirm due lack of oral contrast. PERITONEUM: Limited perineal fat is appreciated as well as of the abdominal wall and pelvic wall in a pattern that suggests cachexia. The fat that is present appears injected and therefore anasarca is questioned. Clinically correlate further. Trace gas seen the anterior abdominal wall inferiorly which may reflect recent injection. Clinically correlate. LYMPH NODES: No gross lymphadenopathy. BLADDER: Decompressed and is poorly evaluated. REPRODUCTIVE: There is a 9.5 x 5.5 cm fatty mass at the mid-pelvis greater the right than left adnexal part with a solitary septation suggestive of probable dermoid tumor. Extensive calcifications in the region of the uterus likely reflects fibroid uterine changes. BONES: No acute fracture appreciable. Degenerative related spondylolisthesis at L4-5 is appreciated with L4 anterior to L5 by approximately 1 cm. OTHER FINDINGS: None. IMPRESSION: 1. Extensive sigmoid diverticulosis is suspected in the lack oral contrast limits evaluation of the bowel including the sigmoid segment. Anasarca and cachectic body habitus also limits evaluation. Diverticulitis is not clearly identified but is difficult to completely exclude either. 2. Mild central intrahepatic biliary dilatation with mild pancreatic duct dilatation also appreciated. The gallbladder is collapsed and common bile duct appears normal caliber. No definitive pancreatic mass appreciated grossly. Consider follow-up MRCP. No cholelithiasis identified. 3. 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 Fibroid uterine changes also identified. 4. Likely constipation.
--- NOTE | 2018-04-02 14:03 | CP.PCM.PN ---
Subjective - Date & Time of Evaluation Date of Evaluation: 04/02/18 Time of Evaluation: 14:01 - Subjective Subjective: Patient clinically remained same, confused. Review of system was not possible because the patient is disoriented. Physical examination essentially is unchanged. CT of the abdomen showed diverticulosis dilated pancreatic duct and 9.5 cm dermoid cyst in the pelvis. Plan continue IV antibiotics for positive blood culture. ASSET MANAGEMENT ANALYST evaluation for dermoid cyst. Since the LFTs are normal will order MRCP for pancreas Objective - Vital Signs/Intake and Output Vital Signs (last 24 hours): Temp Pulse Resp BP Pulse Ox 96.7 F L 60 20 160/93 H 100 04/02/18 07:35 04/02/18 07:35 04/02/18 07:35 04/02/18 07:35 04/02/18 07:35 Intake and Output: 04/02/18 04/02/18 11:59 23:59 Intake Total 400 Balance 400 - Medications Medications: Current Medications Enoxaparin Sodium (Lovenox) 40 mg SC DAILY TIM Last Admin: 04/02/18 10:52 Dose: 40 mg Ciprofloxacin (Cipro 400mg/200ml Dsw) 400 mg in 200 mls @ 133 mls/hr IVPB Q12H TIM PRN Reason: Protocol Last Admin: 04/02/18 04:00 Dose: 133 mls/hr - Labs Labs: 04/02/18 07:04 04/02/18 07:04 Assessment and Plan (1) Generalized weakness Status: Acute (2) Hypokalemia Status: Acute (3) UTI (urinary tract infection) Status: Acute (4) Abrasion, left hip, initial encounter Status: Acute (5) Dementia Status: Acute
--- NOTE | 2018-04-02 22:07 | CP.PCM.CON ---
History of Present Illness - History of Present Illness History of Present Illness: Asked by Dr. Coleman to see patient: CT scan of pelvis, 9.5 cm pelvic mass, possible dermoid Patient received in bed 358A. Resting comfortably, easily awakened. Pleasant; unable to answer any questions such her age; where she is; why she is here; having any children or anyone coming to visit her. 77 y.o. admitted for UTI, altered mental status with h/o Alzheimer's and Dementia. Patient is currently on IV antibiotics for bacteremia. Review of Systems - Review of Systems Review of Systems: unobtainable due to patient's current status Past Patient History - Past Medical History & Family History Pertinent Family History: Unobtainable - Past Social History Smoking Status: Never Smoked - CARDIAC Hx Hypertension: Yes - NEUROLOGICAL Hx Alzheimer's Disease: Yes Hx Dementia: Yes - MUSCULOSKELETAL/RHEUMATOLOGICAL Hx Falls: Yes - PSYCHIATRIC Hx Substance Use: No - SURGICAL HISTORY Hx Surgeries: No Meds Allergies/Adverse Reactions: Allergies Allergy/AdvReac Type Severity Reaction Status Date / Time No Known Allergies Allergy Verified 12/11/17 12:35 - Medications Medications: Current Medications Enoxaparin Sodium (Lovenox) 40 mg SC DAILY [facility] Last Admin: 04/02/18 10:52 Dose: 40 mg Ciprofloxacin (Cipro 400mg/200ml Dsw) 400 mg in 200 mls @ 133 mls/hr IVPB Q12H TIM PRN Reason: Protocol Last Admin: 04/02/18 18:00 Dose: 133 mls/hr Physical Exam - Constitutional Appears: No Acute Distress, Cachectic - Head Exam Head Exam: ATRAUMATIC, NORMOCEPHALIC - Respiratory Exam Respiratory Exam: NORMAL BREATHING PATTERN - Cardiovascular Exam Cardiovascular Exam: REGULAR RHYTHM - Exam Additional comments: Unable to perform service establishment attendant exam - Psychiatric Exam Psychiatric exam: Flat Affect - Skin Skin Exam: Normal Color Results - Vital Signs Recent Vital Signs: Last Vital Signs Temp 97.4 F L 04/02/18 16:00 Pulse 72 04/02/18 16:00 Resp 20 04/02/18 16:00 BP 134/82 04/02/18 16:00 Pulse Ox 100 04/02/18 16:00 - Labs Result Diagrams: 04/02/18 07:04 04/02/18 07:04 Labs: Laboratory Results - last 24 hr 04/02/18 04/02/18 07:04 07:04 WBC 4.2 L RBC 3.52 L Hgb 10.9 L Hct 31.9 L MCV 90.6 MCH 30.9 MCHC 34.1 RDW 13.9 Plt Count 163 MPV 9.8 Neut % (Auto) 26.4 L Lymph % (Auto) 64.4 H Wake % (Auto) 8.4 Eos % (Auto) 0.6 Baso % (Auto) 0.2 Neut # (Auto) 1.1 L Lymph # (Auto) 2.7 Wake # (Auto) 0.4 Eos # (Auto) 0.0 Baso # (Auto) 0.0 Sodium 138 Potassium 4.2 Chloride 102 Carbon Dioxide 27 Anion Gap 14 BUN 19 H Creatinine 0.6 L Est GFR ( Amer) > 60 Est GFR (Non-Af Amer) > 60 Random Glucose 74 Calcium 9.3 Total Bilirubin 0.3 Direct Bilirubin 0.3 AST 26 ALT 14 Alkaline Phosphatase 85 Lactate Dehydrogenase 385 Total Protein 6.9 Albumin 3.0 L Globulin 3.9 Albumin/Globulin Ratio 0.8 L Assessment & Plan - Assessment and Plan (Free Text) Assessment: CT report: 9.5 cm dermoid tumor....Fibroid uterine changes also seen. No lymphadenopathy 77 y.o. female, HD#5, IV antibiotics for bacteremia. h/o Alzeimer's and dementia ; incidental finding of possible dermoid tumor. No acute service establishment attendant intervention at this time. Upon discharge, have patient follow up with Construction Stonemason-Onc at tertiary care center of choice. Plan: Patient care and management as per primary medical team Thank you for the pleasure of this consultation - Date & Time Date: 04/02/18 Time: 22:00
--- NOTE | 2018-04-02 22:20 | CARD ---
APPROVED REPORT Date of service: 03/29/2018 EKG Measurement Heart [id number] <Conclusion> Sinus rhythm with premature atrial complexes Nonspecific T wave abnormality Abnormal ECG
[2018-04-03] MEDS: Ciprofloxacin 400mg/200ml D5W 400 MG/200 ML BAG IVPB SCH ×2 (04:11→17:47)
[2018-04-03] MEDS: Enoxaparin 40 mg Syringe SC SCH (11:00)
[2018-04-03] MEDS ORDERED: Vancomycin 1 gm/NS 200 ml 1 GM/200 ML BAG IVPB STA (11:05)
--- NOTE | 2018-04-03 11:07 | CP.PCM.PN ---
Subjective - Date & Time of Evaluation Date of Evaluation: 04/03/18 Time of Evaluation: 11:07 - Subjective Subjective: CHIEF COMPLAINTS TODAY : afebrile, awake confused . appetite fair. offers no complaints. SEEN BY radio disc jockey-AND APPRECIATED. ROS. on observation. appears comfortable HEENT : N. Resp : No cough, wheezing ,pleuritic CP ,or hemoptysis Cardio : No anginal CP, PND, orthopnea, palpitation GI : No abd.pain, n/v ,diarrhea or GI bleeding . 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 Musculoskel : No joint swelling , Derm : No rash Psych : Normal affect. Ext : No swelling ,calf pain PE. Pt. is awake in no distress. CONFUSED. dEMENTIA V.S As noted in the chart Head ,ear nose,throat and eyes : Normal. Neck : Supple with normal carotids. Lungs: Clear air entry. Heart : S1 & S2 normal with S4. No murmur. Abd : Soft non tender with normal bowel sounds. Neuro : Moves all ext. with no localized deficit. Ext : No edema with intact pulses.Non tender calves Derm : No rashes or decubitus ulcer. LABS/RADIOLOGY: BLOOD CULTURE- +VE METHICILLIN-RESISTANT STAPH AUREUS ONE SET BLOOD CULTURE +VE 1 SET SPHINGOMANAS PAUCIMOBILUS. URINE CULTURE + VE E. COLI S- CIPRO CT ABDOMEN AND PELVIS W/IV CONTRAST- showed diverticulosis dilated pancreatic duct and 9.5 cm dermoid cyst in the pelvis. Objective - Vital Signs/Intake and Output Vital Signs (last 24 hours): Temp Pulse Resp BP Pulse Ox 98.5 F 83 20 138/77 96 04/03/18 08:00 04/03/18 08:00 04/03/18 08:00 04/03/18 08:00 04/03/18 08:00 Intake and Output: 04/03/18 04/03/18 06:59 18:59 Intake Total 440 400 Balance 440 400 - Medications Medications: Current Medications Enoxaparin Sodium (Lovenox) 40 mg SC DAILY COUNTS INCLUDE 234 BEDS AT THE [facility] Last Admin: 04/03/18 11:00 Dose: 40 mg Ciprofloxacin (Cipro 400mg/200ml Dsw) 400 mg in 200 mls @ 133 mls/hr IVPB Q12H TIM PRN Reason: Protocol Last Admin: 04/03/18 04:11 Dose: 133 mls/hr Vancomycin HCl 1 gm/ Sodium (Chloride) 250 mls @ 166.7 mls/hr IVPB STAT STA PRN Reason: Protocol Stop: 04/03/18 12:34 - Labs Labs: 04/02/18 07:04 04/02/18 07:04 Assessment and Plan (1) Gram-positive bacteremia Assessment & Plan: REPEAT BLOOD CULTURES 2 SETS 15 MINUTES APART -VE X 24HRS REPEAT U/A ,URINE CULTURE -CLEAN-CATCH TODAY CONTINUE IV CIPRO 400MG iv PIGGYBAG EVERY 12 HOURLY. 04/01/18. ADD IV VANCOMYCIN 1 G iv PIGGYBACK STAT DOSE FOR mrsa BACTEREMIA. CONTINUE iv VANCOMYCIN 500 MG EVERY 24 HOURLY STARTING A.M. 04/04/18 F/U vANCO TROUGH PRIOR TO THE FOURTH DOSE AND KEEP BETWEEN 10 AND 20 MG/Dl. CHECK 2-d ECHO R/O SBE.IF NEGATIVE AND REPEAT BLOOD CULTURES NEGATIVE FOR 48 HOURS TO CONTINUE VANCOMYCIN X 3 WEEKS. MRSA SCREEN. MONITOR RENAL FUNCTIONS CLOSELY AND vANCO RANDOM LEVELS WEEKLY Status: Acute (2) Hypokalemia Status: Acute (3) UTI (urinary tract infection) Assessment & Plan: iNITIAL URINE CULTURES ESCHERICHIA COLI S -cIPRO. FOLLOW-UP rEPEAT ua URINE CULTURE CLEAN CATCH TODAY DISCUSSED WITH CUSTOMER SERVICE RECEPTIONIST MS GARCIA. CONTINUE iv CIPRO 400 EVERY 12 HOURLY FOR NOW X 14 DAYS TOTAL. Status: Acute (4) Pancytopenia Assessment & Plan: REPEAT cbc WITH DIFFERENTIAL IN A.M. Status: Acute (5) Dementia Status: Acute (6) Dermoid cyst Assessment & Plan: PER GYNECOLOGY NO INTERVENTION NOW. pATIENT TO BE REFERRED TO radio disc jockey ONCOLOGY[facility]. Status: Acute
--- NOTE | 2018-04-03 13:35 | CP.PCM.PN ---
Subjective - Date & Time of Evaluation Date of Evaluation: 04/03/18 Time of Evaluation: 13:34 - Subjective Subjective: Patient clinically remained same, confused. Review of system was not possible because the patient is disoriented. Physical examination essentially is unchanged. CT of the abdomen showed diverticulosis dilated pancreatic duct and 9.5 cm dermoid cyst in the pelvis. Plan continue IV antibiotics for positive blood culture. CARDIAC CATH LAB MANAGER evaluation for dermoid cyst.currently no intervent. Objective - Vital Signs/Intake and Output Vital Signs (last 24 hours): Temp Pulse Resp BP Pulse Ox 98.5 F 83 20 138/77 96 04/03/18 08:00 04/03/18 08:00 04/03/18 08:00 04/03/18 08:00 04/03/18 08:00 Intake and Output: 04/03/18 04/03/18 11:59 23:59 Intake Total 400 Balance 400 - Medications Medications: Current Medications Enoxaparin Sodium (Lovenox) 40 mg SC DAILY TIM Last Admin: 04/03/18 11:00 Dose: 40 mg Ciprofloxacin (Cipro 400mg/200ml Dsw) 400 mg in 200 mls @ 133 mls/hr IVPB Q12H TIM PRN Reason: Protocol Last Admin: 04/03/18 04:11 Dose: 133 mls/hr Vancomycin HCl 500 mg/ Sodium (Chloride) 100 mls @ 100 mls/hr IVPB Q24H TIM PRN Reason: Protocol - Labs Labs: 04/02/18 07:04 04/02/18 07:04 Assessment and Plan (1) Generalized weakness Status: Acute (2) Hypokalemia Status: Acute (3) UTI (urinary tract infection) Status: Acute (4) Abrasion, left hip, initial encounter Status: Acute (5) Dementia Status: Acute
[2018-04-04] MEDS: Ciprofloxacin 400mg/200ml D5W 400 MG/200 ML BAG IVPB SCH (04:09)
[2018-04-04 08:48] LABS: BASO % 0.4 % (0.0-2.0); HEMOGLOBIN 10.9 g/dL (11.0-16.0); LYMPH # 2.2 K/uL (1.0-4.3); LYMPH % 56.9 % (20.0-40.0); MEAN CELL VOLUME 92.1 fL (81.0-99.0); MEAN CORPUSCULAR HEMOGLOBIN 30.4 pg (27.0-31.0); MEAN CORPUSCULAR HGB CONC 33.1 g/dL (33.0-37.0); MEAN PLATELET VOLUME 9.6 fL (7.2-11.7); MONO # 0.3 K/uL (0.0-0.8); MONO % 8.1 % (0.0-10.0); NEUT # 1.3 K/uL (1.8-7.0); NEUT % 33.6 % (50.0-75.0); NRBC % 0.1 % (0.0-2.0); RBC 3.59 Mil/uL (3.80-5.20); RED CELL DISTRIBUTION WIDTH 14.1 % (11.5-14.5); WHITE BLOOD COUNT 3.8 K/uL (4.8-10.8)
[2018-04-04 09:05] LABS: BLOOD UREA NITROGEN 13 mg/dL (7-17); CALCIUM 9.2 mg/dl (8.6-10.4); GFR NON-AFRICAN AMERICAN > 60
[2018-04-04] MEDS: Enoxaparin 40 mg Syringe SC SCH (11:05)
--- NOTE | 2018-04-04 13:55 | CARD ---
APPROVED REPORT Date of service: 04/04/2018 EXAM: Two-dimensional and M-mode echocardiogram with Doppler and color Doppler. Other Information Quality : GoodRhythm : NSR 2D DIMENSIONS IVSd1.1 (0.7-1.1cm)LVDd3.8 (3.9-5.9cm) LVOT Diameter2.0 (1.8-2.4cm)PWd1.3 (0.7-1.1cm) LVDs1.7 (2.5-4.0cm)FS (%) 54.1 % LVEF (%)85.5 (>50%) M-Mode DIMENSIONS Left Atrium (MM)3.43 (2.5-4.0cm)IVSd0.93 (0.7-1.1cm) Aortic Root3.17 (2.2-3.7cm)LVDd4.63 (4.0-5.6cm) Aortic Cusp Exc.1.26 (1.5-2.0cm)PWd1.04 (0.7-1.1cm) FS (%) 47 %LVDs2.44 (2.0-3.8cm) LVEF (%)79 (>50%) Aortic Valve AoV Peak Hhgknzzt893.7cm/sAoV VTI40.5cmAO Peak GR.21mmHg LVOT Peak Qryeeaft572.8cm/sLVOT VTI22.75cmAO Mean GR.12mmHg LISA (VMAX)1.11jw9WFN (VTI)1.77cm2 Mitral Valve MV E Hdgxpgnt04.4cm/sMV A Oqpgiasd995.8cm/s Tricuspid Valve TR Peak Gcpbjrok495ks/sTR Peak Gr.26jtFeTBSP52ojDc LEFT VENTRICLE The left ventricle is normal size. There is borderline concentric left ventricular hypertrophy. Left ventricle systolic function is normal. The Ejection Fraction is 65-70%. There is normal LV segmental wall motion. Transmitral Doppler flow pattern is Grade I-abnormal relaxation pattern. There is no ventricular septal defect visualized. RIGHT VENTRICLE The right ventricle is normal size. The right ventricular systolic function is normal. ATRIA The left atrium is mildly dilated. The right atrium size is normal. AORTIC VALVE The aortic valve is mildly to moderately sclerotic. The aortic valve is tri-cuspid. No aortic regurgitation is present. There is mild valvular aortic stenosis. Calculated aortic valve area is 1.9 cm2 with maximum pressure gradient of 20 mmHg and mean pressure gradient of 11 mmHg. MITRAL VALVE Mitral annular calcification is mild to moderate. There is no evidence of mitral valve prolapse. Mitral regurgitation is trace to mild. TRICUSPID VALVE The tricuspid valve is normal in structure. There is trace tricuspid regurgitation. There is no pulmonary hypertension. PULMONIC VALVE The pulmonary valve is normal in structure. There is no pulmonic valvular regurgitation. GREAT VESSELS The aortic root is normal in size. The ascending aorta is normal in size. The IVC is normal in size and collapses >50% with inspiration. PERICARDIAL EFFUSION There is no pericardial effusion. <Conclusion> There is borderline concentric left ventricular hypertrophy. Left ventricle systolic function is normal. The Ejection Fraction is 65-70%. Transmitral Doppler flow pattern is Grade I-abnormal relaxation pattern. There is mild valvular aortic stenosis. Mitral regurgitation is trace to mild.
--- NOTE | 2018-04-04 14:12 | CP.PCM.DIS ---
Provider - Provider Date of Admission: 03/29/18 21:06 Attending physician: Mellisa Coleman MD Time Spent in preparation of Discharge (in minutes): 36 Diagnosis - Discharge Diagnosis (1) Generalized weakness Status: Acute (2) Hypokalemia Status: Acute (3) UTI (urinary tract infection) Status: Acute (4) Abrasion, left hip, initial encounter Status: Acute (5) Dementia Status: Acute Hospital Course - Lab Results Lab Results: Micro Results 03/30/18 00:40 Blood-Venous S.aureus & Coag-Neg Staph PNA FISH - Final 03/30/18 00:40 Blood-Venous Blood Culture - Final Methicillin Resistant S Aureus 03/30/18 00:40 Blood-Venous Gram Stain - Final 04/01/18 17:00 Blood Blood Culture - Preliminary NO GROWTH AFTER 48 HOURS 04/01/18 17:03 Blood Blood Culture - Preliminary NO GROWTH AFTER 48 HOURS 03/30/18 00:44 Blood-Venous Blood Culture - Final Sphingomonas Paucimobilis 03/30/18 00:44 Blood-Venous Gram Stain - Final 03/29/18 17:49 Urine,Clean Catch Urine Culture - Final Escherichia Coli Most Recent Lab Values WBC 3.8 K/uL (4.8-10.8) L 04/04/18 08:41 RBC 3.59 Mil/uL (3.80-5.20) L 04/04/18 08:41 Hgb 10.9 g/dL (11.0-16.0) L 04/04/18 08:41 Hct 33.1 % (34.0-47.0) L 04/04/18 08:41 MCV 92.1 fL (81.0-99.0) 04/04/18 08:41 MCH 30.4 pg (27.0-31.0) 04/04/18 08:41 MCHC 33.1 g/dL (33.0-37.0) 04/04/18 08:41 RDW 14.1 % (11.5-14.5) 04/04/18 08:41 Plt Count 193 K/uL (130-400) 04/04/18 08:41 MPV 9.6 fL (7.2-11.7) 04/04/18 08:41 Neut % (Auto) 33.6 % (50.0-75.0) L 04/04/18 08:41 Lymph % (Auto) 56.9 % (20.0-40.0) H 04/04/18 08:41 Brown % (Auto) 8.1 % (0.0-10.0) 04/04/18 08:41 Eos % (Auto) 1.0 % (0.0-4.0) 04/04/18 08:41 Baso % (Auto) 0.4 % (0.0-2.0) 04/04/18 08:41 Neut # (Auto) 1.3 K/uL (1.8-7.0) L 04/04/18 08:41 Lymph # (Auto) 2.2 K/uL (1.0-4.3) 04/04/18 08:41 Brown # (Auto) 0.3 K/uL (0.0-0.8) 04/04/18 08:41 Eos # (Auto) 0.0 K/uL (0.0-0.7) 04/04/18 08:41 Baso # (Auto) 0.0 K/uL (0.0-0.2) 04/04/18 08:41 ESR 50 mm/hr (0-20) H 04/04/18 08:41 Sodium 139 mmol/L (132-148) 04/04/18 08:41 Potassium 4.1 mmol/L (3.6-5.2) 04/04/18 08:41 Chloride 101 mmol/L (98-107) 04/04/18 08:41 Carbon Dioxide 34 mmol/L (22-30) H 04/04/18 08:41 Anion Gap 9 (10-20) L 04/04/18 08:41 BUN 13 mg/dL (7-17) 04/04/18 08:41 Creatinine 0.5 mg/dL (0.7-1.2) L 04/04/18 08:41 Est GFR ( Amer) > 60 04/04/18 08:41 Est GFR (Non-Af Amer) > 60 04/04/18 08:41 Random Glucose 80 mg/dL (65-105) 04/04/18 08:41 Calcium 9.2 mg/dl (8.6-10.4) 04/04/18 08:41 Magnesium 1.9 mg/dL (1.6-2.3) 03/31/18 08:56 Total Bilirubin 0.3 mg/dL (0.2-1.3) 04/02/18 07:04 Direct Bilirubin 0.3 mg/dL (0.0-0.4) 04/02/18 07:04 AST 26 U/L (14-36) 04/02/18 07:04 ALT 14 U/L (9-52) 04/02/18 07:04 Alkaline Phosphatase 85 U/L (38-126) 04/02/18 07:04 Lactate Dehydrogenase 385 U/L (313-618) 04/02/18 07:04 Total Protein 6.9 g/dL (6.3-8.3) 04/02/18 07:04 Albumin 3.0 g/dL (3.5-5.0) L 04/02/18 07:04 Globulin 3.9 gm/dL (2.2-3.9) 04/02/18 07:04 Albumin/Globulin Ratio 0.8 (1.0-2.1) L 04/02/18 07:04 Urine Color Yellow (YELLOW) 03/29/18 17:49 Urine Clarity Hazy (Clear) 03/29/18 17:49 Urine pH 7.0 (5.0-8.0) 03/29/18 17:49 Ur Specific [place] 1.012 (1.003-1.030) 03/29/18 17:49 Urine Protein Negative mg/dL (NEGATIVE) 03/29/18 17:49 Urine Glucose (UA) Normal mg/dL (Normal) 03/29/18 17:49 Urine Ketones Trace mg/dL (NEGATIVE) 03/29/18 17:49 Urine Blood 1+ (NEGATIVE) H 03/29/18 17:49 Urine Nitrate Negative (NEGATIVE) 03/29/18 17:49 Urine Bilirubin Negative (NEGATIVE) 03/29/18 17:49 Urine Urobilinogen 2.0 mg/dL (0.2-1.0) H 03/29/18 17:49 Ur Leukocyte Esterase 3+ Dave/uL (Negative) H 03/29/18 17:49 Urine WBC (Auto) 38 /hpf (0-5) H 03/29/18 17:49 Urine RBC (Auto) 2 /hpf (0-3) 03/29/18 17:49 Ur Squamous Epith Cells < 1 /hpf (0-5) 03/29/18 17:49 Urine Bacteria Many (<OCC) H 03/29/18 17:49 - Hospital Course Hospital Course: patient was brought to the emergency room by the patient's grandson periods of confusion and disorientation patient was evaluated in the emergency room patient had a low potassium and urine infection currently no further information is available there is no previous admissions of this hospital and his grandson is not available for further inquiry. patient blood cultures were positive in the urine also was posite. Patient was put on IV antibiotics. Patient remained confused in the Hospital. patient is stable to be discharged to rehab ce to continue IV antibiotics Discharge Exam - Head Exam Head Exam: NORMAL INSPECTION Discharge Plan - Discharge Medications Prescriptions: Ciprofloxacin [Cipro] 250 mg PO BID #20 tab Vancomycin [Vancomycin Inj] 500 mg IVPB Q24H #19 vial - Follow Up Plan Condition: FAIR Disposition: HOME/ ROUTINE Instructions: Urinary Tract Infection in Women (DC), Weakness (ED) Additional Instructions: Please admit patient under Dr. Coleman service- Call Dr. Coleman upon patient arrival to the facility Continue vancomycin for 19 days ( total of 21 days - started on 04/03/18) Continue cipro 250 mg po bid x 10 more days Please do cbc, bmp lft and vanco level q week, starting Sunday call result to Dr. Coleman office continue all other medication as per med. rec. Referrals: Mellisa Coleman MD [Staff Provider] -
--- NOTE | 2018-04-04 14:24 | CP.PCM.PN ---
Subjective - Date & Time of Evaluation Date of Evaluation: 04/04/18 Time of Evaluation: 14:24 - Subjective Subjective: CHIEF COMPLAINTS TODAY : afebrile, awake confused . appetite fair. offers no complaints. PT FOR PICC LINE TODAY ROS. on observation. appears comfortable HEENT : N. Resp : No cough, wheezing ,pleuritic CP ,or hemoptysis Cardio : No anginal CP, PND, orthopnea, palpitation GI : No abd.pain, n/v ,diarrhea or GI bleeding . AMBULATORY NURSE : No headache, vertigo, focal deficit. Musculoskel : No joint swelling , Derm : No rash Psych : Normal affect. Ext : No swelling ,calf pain PE. Pt. is awake in no distress. CONFUSED. dEMENTIA V.S As noted in the chart Head ,ear nose,throat and eyes : Normal. Neck : Supple with normal carotids. Lungs: Clear air entry. Heart : S1 & S2 normal with S4. No murmur. Abd : Soft non tender with normal bowel sounds. Neuro : Moves all ext. with no localized deficit. Ext : No edema with intact pulses.Non tender calves Derm : No rashes or decubitus ulcer. LABS/RADIOLOGY: REPEAT BLOOD CULTURES -VE X TO DATE BLOOD CULTURE- +VE METHICILLIN-RESISTANT STAPH AUREUS ONE SET BLOOD CULTURE +VE 1 SET SPHINGOMANAS PAUCIMOBILUS. URINE CULTURE + VE E. COLI S- CIPRO CT ABDOMEN AND PELVIS W/IV CONTRAST- showed diverticulosis dilated pancreatic duct and 9.5 cm dermoid cyst in the pelvis. Objective - Vital Signs/Intake and Output Vital Signs (last 24 hours): Temp Pulse Resp BP Pulse Ox 97.9 F 72 20 133/75 97 04/04/18 07:33 04/04/18 07:33 04/04/18 07:33 04/04/18 07:33 04/04/18 07:33 Intake and Output: 04/04/18 04/04/18 06:59 18:59 Intake Total 800 Balance 800 - Medications Medications: Current Medications Enoxaparin Sodium (Lovenox) 40 mg SC DAILY [facility] Last Admin: 04/04/18 11:05 Dose: 40 mg Ciprofloxacin (Cipro 400mg/200ml Dsw) 400 mg in 200 mls @ 133 mls/hr IVPB Q12H [facility] PRN Reason: Protocol Last Admin: 04/04/18 04:09 Dose: 133 mls/hr Vancomycin HCl 500 mg/ Sodium (Chloride) 100 mls @ 100 mls/hr IVPB Q24H TIM PRN Reason: Protocol Last Admin: 04/04/18 11:05 Dose: 100 mls/hr - Labs Labs: 04/04/18 08:41 04/04/18 08:41 Assessment and Plan (1) Gram-positive bacteremia Assessment & Plan: DC IV CIPRO 400MG iv PIGGYBAG EVERY 12 HOURLY. 04/01/18. START PO CIPRO 250MG PO BID X 10DAYS MORE ADD IV VANCOMYCIN 1 G iv PIGGYBACK STAT DOSE FOR mrsa BACTEREMIA. CONTINUE iv VANCOMYCIN 500 MG EVERY 24 HOURLY STARTING A.M. 04/04/18 X TOTAL OF 21 DAYS . F/U vANCO TROUGH WEEKLY AND KEEP BETWEEN 10 AND 20 MG/Dl. 2D ECHO -VE VEGS MONITOR RENAL FUNCTIONS CLOSELY AND vANCO RANDOM LEVELS WEEKLY Status: Acute (2) Hypokalemia Status: Acute (3) UTI (urinary tract infection) Assessment & Plan: URINE CULTURE +VE E COLI S -CIPRO CHANGE IV CIPRO -TO PO CIPRO 250MG BID X 10DAYS. F/U BMP WEEKLY AND CBC WEEKLY.MONITOR FOR ANY TENDINITIS OR JOINT PAINS.ANDNOTIFY PMD. Status: Acute (4) Pancytopenia Assessment & Plan: F/U CBC WEEKLY. Status: Acute (5) Dementia Status: Acute (6) Dermoid cyst Status: Acute
--- NOTE | 2018-04-04 16:28 | CP.PCM.PN ---
Subjective - Date & Time of Evaluation Date of Evaluation: 04/04/18 Time of Evaluation: 14:00 - Subjective Subjective: Patient seen today, awake, alert, NAD confused Objective - Vital Signs/Intake and Output Vital Signs (last 24 hours): Temp Pulse Resp BP Pulse Ox 97.9 F 72 20 133/75 97 04/04/18 07:33 04/04/18 07:33 04/04/18 07:33 04/04/18 07:33 04/04/18 07:33 Intake and Output: 04/04/18 04/04/18 06:59 18:59 Intake Total 800 Balance 800 - Medications Medications: Current Medications Ciprofloxacin (Cipro) 250 mg PO BID TIM PRN Reason: Protocol Stop: 04/14/18 18:01 Enoxaparin Sodium (Lovenox) 40 mg SC DAILY [facility] Last Admin: 04/04/18 11:05 Dose: 40 mg Vancomycin HCl 500 mg/ Sodium (Chloride) 100 mls @ 100 mls/hr IVPB Q24H TIM PRN Reason: Protocol Last Admin: 04/04/18 11:05 Dose: 100 mls/hr - Labs Labs: 04/04/18 08:41 04/04/18 08:41 Assessment and Plan - Assessment and Plan (Free Text) Assessment: A/P blood culture = Mrsa and urine culturre positive , repeat blood culture - negative for 48 hrs Echo- no vegitation D/w Dr. mcallister , Patient needs to continue vancomycin 500 mg iv daily for total of 21 days and cipro 250 mg po bid x 10 days and weekly cbc, bmpo, lft, vanco level Picc line consent obtained from GIDEON Vazquez D/w Dr. Coleman cleared fro discharge to [facility] today and Dr. Coleman will follow the patient at [facility] ( Jorge Luis received 2 doses of vanco in hospital ) Instructions given to [facility] to continue 19 more days of vanco and weekly labs
[2018-04-05] MEDS: Enoxaparin 40 mg Syringe SC SCH (10:47)
--- NOTE | 2018-04-05 13:51 | CP.PCM.DIS ---
Provider - Provider Date of Admission: 03/29/18 21:06 Attending physician: Mellisa Coleman MD Time Spent in preparation of Discharge (in minutes): 36 Diagnosis - Discharge Diagnosis (1) Generalized weakness Status: Acute (2) Hypokalemia Status: Acute (3) UTI (urinary tract infection) Status: Acute (4) Abrasion, left hip, initial encounter Status: Acute (5) Dementia Status: Acute Hospital Course - Lab Results Lab Results: Micro Results 04/01/18 17:00 Blood Blood Culture - Preliminary NO GROWTH AFTER 3 DAYS 04/01/18 17:03 Blood Blood Culture - Preliminary NO GROWTH AFTER 3 DAYS 03/30/18 00:40 Blood-Venous S.aureus & Coag-Neg Staph PNA FISH - Final 03/30/18 00:40 Blood-Venous Blood Culture - Final Methicillin Resistant S Aureus 03/30/18 00:40 Blood-Venous Gram Stain - Final 03/30/18 00:44 Blood-Venous Blood Culture - Final Sphingomonas Paucimobilis 03/30/18 00:44 Blood-Venous Gram Stain - Final 03/29/18 17:49 Urine,Clean Catch Urine Culture - Final Escherichia Coli Most Recent Lab Values WBC 3.8 K/uL (4.8-10.8) L 04/04/18 08:41 RBC 3.59 Mil/uL (3.80-5.20) L 04/04/18 08:41 Hgb 10.9 g/dL (11.0-16.0) L 04/04/18 08:41 Hct 33.1 % (34.0-47.0) L 04/04/18 08:41 MCV 92.1 fL (81.0-99.0) 04/04/18 08:41 MCH 30.4 pg (27.0-31.0) 04/04/18 08:41 MCHC 33.1 g/dL (33.0-37.0) 04/04/18 08:41 RDW 14.1 % (11.5-14.5) 04/04/18 08:41 Plt Count 193 K/uL (130-400) 04/04/18 08:41 MPV 9.6 fL (7.2-11.7) 04/04/18 08:41 Neut % (Auto) 33.6 % (50.0-75.0) L 04/04/18 08:41 Lymph % (Auto) 56.9 % (20.0-40.0) H 04/04/18 08:41 [place] % (Auto) 8.1 % (0.0-10.0) 04/04/18 08:41 Eos % (Auto) 1.0 % (0.0-4.0) 04/04/18 08:41 Baso % (Auto) 0.4 % (0.0-2.0) 04/04/18 08:41 Neut # (Auto) 1.3 K/uL (1.8-7.0) L 04/04/18 08:41 Lymph # (Auto) 2.2 K/uL (1.0-4.3) 04/04/18 08:41 Lucas # (Auto) 0.3 K/uL (0.0-0.8) 04/04/18 08:41 Eos # (Auto) 0.0 K/uL (0.0-0.7) 04/04/18 08:41 Baso # (Auto) 0.0 K/uL (0.0-0.2) 04/04/18 08:41 ESR 50 mm/hr (0-20) H 04/04/18 08:41 Sodium 139 mmol/L (132-148) 04/04/18 08:41 Potassium 4.1 mmol/L (3.6-5.2) 04/04/18 08:41 Chloride 101 mmol/L (98-107) 04/04/18 08:41 Carbon Dioxide 34 mmol/L (22-30) H 04/04/18 08:41 Anion Gap 9 (10-20) L 04/04/18 08:41 BUN 13 mg/dL (7-17) 04/04/18 08:41 Creatinine 0.5 mg/dL (0.7-1.2) L 04/04/18 08:41 Est GFR ( Amer) > 60 04/04/18 08:41 Est GFR (Non-Af Amer) > 60 04/04/18 08:41 Random Glucose 80 mg/dL (65-105) 04/04/18 08:41 Calcium 9.2 mg/dl (8.6-10.4) 04/04/18 08:41 Magnesium 1.9 mg/dL (1.6-2.3) 03/31/18 08:56 Total Bilirubin 0.3 mg/dL (0.2-1.3) 04/02/18 07:04 Direct Bilirubin 0.3 mg/dL (0.0-0.4) 04/02/18 07:04 AST 26 U/L (14-36) 04/02/18 07:04 ALT 14 U/L (9-52) 04/02/18 07:04 Alkaline Phosphatase 85 U/L (38-126) 04/02/18 07:04 Lactate Dehydrogenase 385 U/L (313-618) 04/02/18 07:04 Total Protein 6.9 g/dL (6.3-8.3) 04/02/18 07:04 Albumin 3.0 g/dL (3.5-5.0) L 04/02/18 07:04 Globulin 3.9 gm/dL (2.2-3.9) 04/02/18 07:04 Albumin/Globulin Ratio 0.8 (1.0-2.1) L 04/02/18 07:04 Urine Color Yellow (YELLOW) 03/29/18 17:49 Urine Clarity Hazy (Clear) 03/29/18 17:49 Urine pH 7.0 (5.0-8.0) 03/29/18 17:49 Ur Specific [place] 1.012 (1.003-1.030) 03/29/18 17:49 Urine Protein Negative mg/dL (NEGATIVE) 03/29/18 17:49 Urine Glucose (UA) Normal mg/dL (Normal) 03/29/18 17:49 Urine Ketones Trace mg/dL (NEGATIVE) 03/29/18 17:49 Urine Blood 1+ (NEGATIVE) H 03/29/18 17:49 Urine Nitrate Negative (NEGATIVE) 03/29/18 17:49 Urine Bilirubin Negative (NEGATIVE) 03/29/18 17:49 Urine Urobilinogen 2.0 mg/dL (0.2-1.0) H 03/29/18 17:49 Ur Leukocyte Esterase 3+ Dave/uL (Negative) H 03/29/18 17:49 Urine WBC (Auto) 38 /hpf (0-5) H 03/29/18 17:49 Urine RBC (Auto) 2 /hpf (0-3) 03/29/18 17:49 Ur Squamous Epith Cells < 1 /hpf (0-5) 03/29/18 17:49 Urine Bacteria Many (<OCC) H 03/29/18 17:49 - Hospital Course Hospital Course: patient was brought to the emergency room by the patient's grandson periods of confusion and disorientation patient was evaluated in the emergency room patient had a low potassium and urine infection currently no further information is available there is no previous admissions of this hospital and his grandson is not available for further inquiry. patient blood cultures were positive in the urine also was posite. Patient was put on IV antibiotics. Patient remained confused in the Hospital. patient is stable to be discharged to rehab ce to continue IV antibiotics Discharge Exam - Head Exam Head Exam: NORMAL INSPECTION Discharge Plan - Discharge Medications Prescriptions: Ciprofloxacin [Cipro] 250 mg PO BID #20 tab Vancomycin [Vancomycin Inj] 500 mg IVPB Q24H #19 vial - Follow Up Plan Condition: FAIR Disposition: HOME/ ROUTINE Instructions: Urinary Tract Infection in Women (DC), Weakness (ED) Additional Instructions: Please admit patient under Dr. Coleman service- Call Dr. Coleman upon patient arrival to the facility Continue vancomycin for 19 days ( total of 21 days - started on 04/03/18) Continue cipro 250 mg po bid x 10 more days Please do cbc, bmp lft and vanco level q week, starting Sunday call result to Dr. Coleman office continue all other medication as per med. rec. Referrals: Mellisa Coleman MD [Staff Provider] -
--- NOTE | 2018-04-06 00:03 | CP.PCM.PN ---
Subjective - Date & Time of Evaluation Date of Evaluation: 04/05/18 Time of Evaluation: 00:02 - Subjective Subjective: LATE ENTRY ; 04/05/18 . AFEBRILE, VSS. AWAKE BUT CONFUSED CLINICALLY SAME. PATIENT UNABLE TO GET picc LINE INSERTED DUE TO TECHNICAL REASONS. INFORMED BY RN. DISCUSSED WITH RN POINT OF CARE SPECIALIST MS Barajas, TO HOLD DISCHARGE FOR REEVALUATION FOR iv ACCESS BY IR IN A.M. PATIENT NEEDS iv ACCESS FOR iv ANTIBIOTICS. ROS. on observation. appears comfortable HEENT : N. Resp : No cough, wheezing ,pleuritic CP ,or hemoptysis Cardio : No anginal CP, PND, orthopnea, palpitation GI : No abd.pain, n/v ,diarrhea or GI bleeding . 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 Musculoskel : No joint swelling , Derm : No rash Psych : Normal affect. Ext : No swelling ,calf pain PE. Pt. is awake in no distress. CONFUSED. dEMENTIA V.S As noted in the chart Head ,ear nose,throat and eyes : Normal. Neck : Supple with normal carotids. Lungs: Clear air entry. Heart : S1 & S2 normal with S4. No murmur. Abd : Soft non tender with normal bowel sounds. Neuro : Moves all ext. with no localized deficit. Ext : No edema with intact pulses.Non tender calves Derm : No rashes or decubitus ulcer. LABS/RADIOLOGY: REPEAT BLOOD CULTURES -VE X TO DATE BLOOD CULTURE- +VE METHICILLIN-RESISTANT STAPH AUREUS ONE SET BLOOD CULTURE +VE 1 SET SPHINGOMANAS PAUCIMOBILUS. URINE CULTURE + VE E. COLI S- CIPRO CT ABDOMEN AND PELVIS W/IV CONTRAST- showed diverticulosis dilated pancreatic duct and 9.5 cm dermoid cyst in the pelvis. Objective - Vital Signs/Intake and Output Vital Signs (last 24 hours): Temp Pulse Resp BP Pulse Ox 98.4 F 65 20 142/85 98 04/05/18 07:43 04/05/18 07:43 04/05/18 07:43 04/05/18 07:43 04/05/18 07:43 Intake and Output: 04/05/18 04/06/18 18:59 06:59 Intake Total 360 150 Balance 360 150 - Medications Medications: Current Medications Ciprofloxacin (Cipro) 250 mg PO BID TIM PRN Reason: Protocol Stop: 04/14/18 18:01 Last Admin: 04/05/18 18:00 Dose: Not Given Enoxaparin Sodium (Lovenox) 40 mg SC DAILY [facility] Last Admin: 04/05/18 10:47 Dose: 40 mg Vancomycin HCl 500 mg/ Sodium (Chloride) 100 mls @ 100 mls/hr IVPB Q24H TIM PRN Reason: Protocol Last Admin: 04/05/18 11:30 Dose: 100 mls/hr - Labs Labs: 04/04/18 08:41 04/04/18 08:41 Assessment and Plan (1) Gram-positive bacteremia Assessment & Plan: START PO CIPRO 250MG PO BID X 10DAYS MORE 04/05/18 ADD IV VANCOMYCIN 1 G iv PIGGYBACK STAT DOSE FOR mrsa BACTEREMIA. CONTINUE iv VANCOMYCIN 500 MG EVERY 24 HOURLY STARTING A.M. 04/04/18 X TOTAL OF 21 DAYS . F/U vANCO TROUGH WEEKLY AND KEEP BETWEEN 10 AND 20 MG/Dl. 2D ECHO -VE VEGS MONITOR RENAL FUNCTIONS CLOSELY AND VANCO RANDOM LEVELS WEEKLY F/U CBC, LFTS,BMP WEEKLY. CASE DISCUSSED WITH GRAIN UNLOADER MACHINE MS GARCIA. TRANSFER HELD TO [facility] PATIENT WAS UNABLE TO HAVE iv ACCESS /PICC LINE INSERTED TODAY REPORTED BY RN. Status: Acute (2) Hypokalemia Status: Acute (3) UTI (urinary tract infection) Assessment & Plan: F/U REPEAT URINE CULTURES CLEAN-CATCH. Status: Acute (4) Pancytopenia Status: Acute (5) Dementia Status: Acute (6) Dermoid cyst Assessment & Plan: PER GYNECOLOGY NO INTERVENTION NOW. pATIENT TO BE REFERRED TO lane attendant [facility] ON D/C FROM [facility].. Status: Acute
[2018-04-06 00:10] VITALS: BP 132/84; PULSE 69; TEMP 98.7; O2SAT 97
[2018-04-06] MEDS: Enoxaparin 40 mg Syringe SC SCH (09:24)
--- NOTE | 2018-04-06 14:25 | CP.PCM.PN ---
Subjective - Date & Time of Evaluation Date of Evaluation: 04/06/18 Time of Evaluation: 14:23 - Subjective Subjective: Patient was not transferred to rehab center as patient did not receive PICC line. Clinically patient remained same on IV antibiotics. PICC line will be inserted by interventional radiologist due to difficult vein access Objective - Vital Signs/Intake and Output Vital Signs (last 24 hours): Temp Pulse Resp BP Pulse Ox 98.7 F 69 20 132/84 97 04/06/18 00:09 04/06/18 00:09 04/06/18 00:09 04/06/18 00:04/06/18 00:09 Intake and Output: 04/06/18 04/06/18 11:59 23:59 Intake Total 120 Output Total 1 Balance 119 - Medications Medications: Current Medications Ciprofloxacin (Cipro) 250 mg PO BID TIM PRN Reason: Protocol Stop: 04/14/18 18:01 Last Admin: 04/06/18 09:24 Dose: 250 mg Vancomycin HCl 500 mg/ Sodium (Chloride) 100 mls @ 100 mls/hr IVPB Q24H TIM PRN Reason: Protocol Last Admin: 04/06/18 10:25 Dose: 100 mls/hr - Labs Labs: 04/04/18 08:41 04/04/18 08:41 Assessment and Plan (1) Generalized weakness Status: Acute (2) Hypokalemia Status: Acute (3) UTI (urinary tract infection) Status: Acute (4) Abrasion, left hip, initial encounter Status: Acute (5) Dementia Status: Acute
== END 2018-04-06 20:36 | DRG 690 ==
LOC: C.ER 16:28 → C.9E 21:06 → C.3T 22:04
PROVIDERS: ADMIT Internal Medicine Cardiovascular Disease; ATTEND Internal Medicine Cardiovascular Disease
DX: N39.0 Urinary tract infection, site not specified (principal); R78.81 Bacteremia; D61.818 Other pancytopenia; R53.1 Weakness; B96.20 Unspecified Escherichia coli [E. coli] as the cause of diseases classified elsewhere; E87.6 Hypokalemia; I10 Essential (primary) hypertension; K86.89 Other specified diseases of pancreas; K57.90 Diverticulosis of intestine, part unspecified, without perforation or abscess without bleeding; G30.9 Alzheimer's disease, unspecified; F02.80 Dementia in other diseases classified elsewhere, unspecified severity, without behavioral disturbance, psychotic disturbance, mood disturbance, and anxiety; S70.212A Abrasion, left hip, initial encounter; X58.XXXA Exposure to other specified factors, initial encounter; B96.89 Other specified bacterial agents as the cause of diseases classified elsewhere; D36.7 Benign neoplasm of other specified sites